=== PATIENT | female | born 1965 | race Caucasian/White ===

== ENCOUNTER → 2017-03-24 | Outpatient (CLI) | payer OTHER ==
[~2017-03-24] MED LIST: GADOBUTROL 10 ML VIAL IVP ONE
== END ==
LOC: FIMAGING 15:51
PROVIDERS: ATTEND Obstetrics & Gynecology Gynecology
DX: R10.2 Pelvic and perineal pain (principal); R50.9 Fever, unspecified; D25.9 Leiomyoma of uterus, unspecified; N85.9 Noninflammatory disorder of uterus, unspecified
CPT/HCPCS: A9585

== ENCOUNTER 2017-05-27 07:15 | Observation (INO) | payer OTHER ==
--- NOTE | 2017-11-17 14:34 | PDHPUP ---
History & Physical Update H&P update statement: This history and physical update is based on an assessment of the patient which was completed after admission or registration (within 24 hours), but prior to the surgery/procedure. H&P update: H&P reviewed & patient examined, no change in patient's condition since H&P completed
[2017-11-18] MEDS ORDERED: ceFAZolin 2 GM/DEXTROSE 100 ML IV ONE (06:13)
[2017-11-18] MEDS ORDERED: LIDOCAINE 1% 2 ML INJ ID PRN (06:16)
[2017-11-18] MEDS ORDERED: LR 1,000 ML IV ONE (06:16)
[2017-11-18] MEDS ORDERED: VASOPRESSIN 20 UNIT/ML VIAL ONE (06:44)
[2017-11-18] MEDS ORDERED: MIDAZOLAM 2 MG/2 ML VIAL ONE (07:14)
[2017-11-18] MEDS ORDERED: MIDAZOLAM 2 MG/2 ML VIAL IVP ONE (07:15)
[2017-11-18] MEDS ORDERED: fentaNYL 100 MCG/2 ML INJ ONE ×2 (07:19→10:35)
[2017-11-18] MEDS ORDERED: LIDOCAINE 2% 100 MG/5 ML SYR ONE (07:19)
[2017-11-18] MEDS ORDERED: ONDANSETRON 4 MG/2 ML VIAL ONE (07:19)
[2017-11-18] MEDS ORDERED: BUPIVACAINE/DEXTROSE 7.5MG/ML 2 ML SPINAL AMP SP ONE (07:19)
[2017-11-18] MEDS ORDERED: morphINE PF 5 MG/10 ML INJ ONE (07:19)
[2017-11-18] MEDS ORDERED: PROPOFOL 200 MG/20 ML VIAL ONE (07:19)
[2017-11-18] MEDS ORDERED: DEXAMETHASONE 4 MG/ML VIAL ONE (07:19)
[2017-11-18] MEDS ORDERED: GLYCOPYRROLATE 0.2 MG/1 ML VIAL ONE (08:32)
[2017-11-18] MEDS ORDERED: PHENYLEPHRINE HCL 100 MCG/ML SYR ONE (08:32)
[2017-11-18] MEDS ORDERED: DIAZEPAM 5 MG/ML 1 ML SYR IVP PRN (09:07)
[2017-11-18] MEDS ORDERED: NALOXONE HCL 0.4 MG/ML INJ IVP PRN (09:07)
[2017-11-18] MEDS ORDERED: LR 500 ML IV PRN (09:07)
[2017-11-18] MEDS ORDERED: oxyCODONE IR 5 MG TAB PO PRN (09:07)
[2017-11-18] MEDS ORDERED: MEPERIDINE 25 MG/0.5 ML AMP IVP PRN (09:07)
[2017-11-18] MEDS ORDERED: HYDROmorphONE/DILAUDID 2 MG/ML INJ IVP PRN (09:07)
[2017-11-18] MEDS ORDERED: ALBUTEROL 3 ML DEYVIAL IH PRN (09:07)
[2017-11-18] MEDS ORDERED: PROMETHAZINE HCL 25 MG/ML INJ IVP PRN (09:07)
--- NOTE | 2017-11-18 09:07 | PDANEPAE ---
ANE History of Present Illness fibroids, dysmenorrhea, here for vaginal hysterectomy and salpingectomy ANE Past Medical History - Cardiovascular History Hx Hypertension: No Hx Arrhythmias: No Hx Chest Pain: No Hx Coronary Artery / Peripheral Vascular Disease: No Hx CHF / Valvular Disease: No Hx Palpitations: No - Pulmonary History Hx COPD: No Hx Asthma/Reactive Airway Disease: Yes Hx Recent Upper Respiratory Infection: No Hx Oxygen in Use at Home: No Hx Sleep Apnea: No Sleep Apnea Screening Result - Last Documented: Negative Pulmonary History Comment: EXERCISE INDUCED ASTHMA - Neurologic History Hx Cerebrovascular Accident: No Hx Seizures: No Hx Dementia: No - Endocrine History Hx Diabetes: No Endocrine History Comment: HYPOTHROID. PT DOES NOT HAVE DIABETIES-SHE IS ON METFORMIN FOR PCOS - Renal History Hx Renal Disorders: No - Liver History Hx Hepatic Disorders: No - Neurological & Psychiatric Hx Hx Neurological and Psychiatric Disorders: No - Cancer History Hx Cancer: No - Congenital Disorder History Hx Congenital Disorders: No - GI History Hx Gastrointestinal Disorders: No - Other Health History Other Health History: ON METFORMIN FOR PCOS - Chronic Pain History Chronic Pain: Yes - Surgical History Prior Surgeries: FOOT SURG. TUBAL LIGATION. BREAST BX. COLONOSCOPY ANE Review of Systems Review of Systems: - Exercise capacity METS (RN): 5 METS ANE Patient History - Allergies Allergies/Adverse Reactions: No Known Allergies Allergy (Unverified 06/18/17 11:19) - Home Medications Home Medications: Albuterol [Proventil Inhaler HFA (*)] 1 - 2 puffs IH DAILY PRN 06/18/17 [Last Taken 11/17/17] Herbals/Supplements -Info Only 1 ea PO DAILY 06/18/17 [Last Taken 11/09/17] Ibuprofen [Motrin (*)] 200 mg PO DAILY PRN 06/18/17 [Last Taken 11/09/17] Levothyroxine [Synthroid 100 mcg (*)] 100 mcg PO DAILY06 06/18/17 [Last Taken ] metFORMIN SR [Glucophage XR 500 mg (*)] 500 mg PO DAILY 06/18/17 [Last Taken 2 Days Ago ~11/16/17] - NPO status NPO Since - Liquids (Date): 11/17/17 NPO Since - Liquids (Time): 20:00 NPO Since - Solids (Date): 11/17/17 NPO Since - Solids (Time): 20:00 - Smoking Hx Smoking Status: Never smoked - Family Anes Hx Family Hx Anesthesia Complications: NEG ANE Labs/Vital Signs - Vital Signs Blood Pressure: 135/79 Heart Rate: 74 Respiratory Rate: 16 O2 Sat (%): 95 Height: 154.94 cm Weight: 65.771 kg ANE Physical Exam - Airway Neck exam: FROM Mallampati Score: Class 1 Mouth exam: normal dental/mouth exam - Pulmonary Pulmonary: no respiratory distress - Cardiovascular Cardiovascular: regular rate and rhythym - ASA Status ASA Status: II ANE Anesthesia Plan Anesthesia Plan: general endotracheal anesthesia, spinal
[2017-11-18] MEDS ORDERED: KETOROLAC 30 MG/1 ML SDV ONE (09:24)
[2017-11-18] MEDS ORDERED: HYDROCODONE/APAP 5/325 TAB PO PRN (09:52)
[2017-11-18] MEDS ORDERED: ONDANSETRON 4 MG/2 ML VIAL IVP PRN ×2 (09:52→11:55)
--- NOTE | 2017-11-18 09:52 | POSTOPPROG ---
Post Op Note Date of Operation: 11/18/17 Surgeon: Nanette Spaulding Architectural Technologist: Mariposa OTTO Anesthesiologist: Magali Aguiar Anesthesia: LMA, Spinal Pre-op Diagnosis: uterine fibroids, symptomatic Post-op Diagnosis: same Indication: same Procedure: TVH/BS, morcellation of fibroid Findings: 14 week fibroid Inf/Abcess present in the surg proc area at time of surgery?: No EBL: 50-100 Complications: none
[2017-11-18] MEDS ORDERED: LR 1,000 ML IV SCH (10:00)
[2017-11-18] MEDS ORDERED: DIAZEPAM 5 MG/ML 1 ML SYR ONE (10:04)
[2017-11-18] MEDS: fentaNYL 100 MCG/2 ML INJ IVP PRN ×2 (10:42→11:36)
--- NOTE | 2017-11-18 11:22 | GOP ---
DATE OF OPERATION: 11/18/2017 SURGEON: Nanette Spaulding MD STRIPE MATCHER: FAM Gonzalez. ANESTHESIA: Spinal, morphine for postop pain control and general with LMA. ANESTHESIOLOGIST: Rita Aguiar PREOPERATIVE DIAGNOSIS: Symptomatic uterine fibroids, measuring about 14 weeks. POSTOPERATIVE DIAGNOSIS: Symptomatic uterine fibroids, measuring about 14 weeks. PROCEDURE PERFORMED: Total vaginal hysterectomy with bilateral salpingectomy and vaginal morcellatio n of uterine fibroids. FINDINGS: A very large uterus and very anteverted, about 14-16 weeks in size. Normal tubes and ovar ies. ESTIMATED BLOOD LOSS: About 50-100 cc. INDICATIONS: Patient is a 52-year-old, G2, P2, who was noted in February 2017, to have an enlarged ut erus on exam and also was stating that she was having significant bladder pressure and urinary urgenc y and frequency. Ultrasound done and she was noted to have an 8 cm uterine fibroid, very anteverted and compressing the bladder. We discussed the treatment options including hysterectomy, uterine dalton ry embolization. She then proceeded to have an endometritis and was treated with antibiotics, and at that has decided to undergo definitive treatment and that is with vaginal hysterectomy. DESCRIPTION OF PROCEDURE: With informed consent signed, patient taken to the operating room, placed under spinal then general anesthesia, placed in the high dorsal lithotomy position, prepped and drape d in the usual sterile fashion. Castillo catheter placed. The cervix was grasped with 2 tenaculums and a posterior colpotomy performed, entering the posterior cul-de-sac and this was done with the [place] s cissors and then the vaginal mucosa was sewn into the underlying peritoneum for hemostasis reasons. Next, the left uterosacral ligaments were clamped, cut, and suture ligated. Same was done on the rig ht. The cardinal ligaments were clamped, cut, and suture ligated. Because the uterus was so large, several extra bites in this area to assure hemostasis and then the uterine vessels on each side were identified, clamped, cut, and suture ligated. The anterior peritoneum was opened sharply and this ag ain also after several bites from the broad ligament, was released. Again, several other uterine ves sels were identified, clamped, cut, and suture ligated. The uterus was then inverted and the fundus was delivered posteriorly and this was then injected with about 18 cc of Pitressin and then morcellat ion using the scalpel of the posterior wall of the uterus up into the fundus done. This took quite a while to remove large sections of the uterus, probably about 20 minutes to morcellate. Then the cor nua on each side of the uterus were identified and these were clamped, cut, and suture ligated. The uterosacral ligaments were clamped, cut, suture ligated. Then successive bites down the broad ligame nt while the uterus was inverted to release the uterus and this was handed off for specimen. Then th e left fallopian tube was identified, clamped away from the ovary, cut and suture ligated and the raquel e was done on the right. Hemostasis was noted at each utero-ovarian pedicle and then the vagina was closed first with a Flynn culdoplasty, placing a suture at 6 o'clock of the vaginal cuff, grasping t he left uterosacral ligament and then several bites of the peritoneum and then grasping the right [place] rosacral ligament and then out at the 6 o'clock position. This was tied down obliterating the cul-de -sac. The vagina was closed with [id number] sutures. Hemostasis was noted. Patient was awaken ed in the operating room, taken to recovery room in stable condition. Tolerated procedure well. Ins trument count was correct x2. SURGEON: Nanette Spaulding MD. COMPLICATIONS: None. /[id number]/MODL
[2017-11-18] MEDS ORDERED: NALOXONE HCL 2 MG in D5W 500 ML IV SCH ×2 (13:30→14:00)
[2017-11-18] MEDS ORDERED: IBUPROFEN 600 MG TAB PO SCH (14:00)
[2017-11-18] MEDS ORDERED: hydrOXYzine HCL 25 MG TAB PO PRN (14:47)
[2017-11-18] MEDS ORDERED: KETOROLAC 30 MG/1 ML SDV IVP PRN (14:48)
[2017-11-18] MEDS ORDERED: ALBUTEROL 60 PUFFS/8 GM MDI IH PRN (14:55)
--- NOTE | 2017-11-18 15:18 | GCON ---
DATE OF CONSULTATION: 11/18/2017 REFERRING PHYSICIAN: Nanette Spaulding MD REASON FOR CONSULTATION: Allergic reaction to Duramorph, pruritis. HISTORY OF PRESENT ILLNESS: A 52-year-old female who underwent elective total vaginal hysterectomy with bilateral salpingectomy and morcellation of uterine fibroids by Dr. Spaulding today. She received Duramorph epidural with a total of 0.3 mg morphine. After procedure, she developed significant itching all over her body. Denies shortness of breath. No throat closing. No nausea, vomiting , or difficulty breathing. No chest pain. She has taken Percocet in the past without any reaction. In the PACU, she was started on Narcan drip and received Solu-Medrol, Benadryl, and ranitidine. Upon my review, patient states the itching has improved. REVIEW OF SYSTEMS: I completed a 10-point review of systems, negative, except as noted in HPI. PAST MEDICAL HISTORY: Exercise-induced asthma, hypothyroidism, PCOS. PAST SURGICAL HISTORY: Foot surgery, tubal ligation, breast biopsy, colonoscopy , 2 D and C's. SOCIAL HISTORY: Lives in [place] with her and 2 children. FAMILY HISTORY: Maternal grandmother with breast and lung cancer. ALLERGIES: None. PHYSICAL EXAMINATION: VITAL SIGNS: Temperature is 37.4, blood pressure 157/71 , heart rate in 70s, respirations 16, 99% on room air. GENERAL: She is tired appearing, but in no acute distress. HEART: PERRLA. Moist mucous membranes. Oropharynx is clear. No evidence of obstruction. CV: Regular rate and rhythm. LUNGS: Clear. No stridor. ABDOMEN: Soft, nontender, nondistended with positive bowel sounds. : No Castillo. MUSCULOSKELETAL: 5/5 upper lower extremity strength. SKIN: Warm, dry. No rash. NEURO: 2 through 12 intact. PSYCH: Alert and oriented x3. LABORATORY DATA: From 11/13/2017: Sodium 137, potassium 4.7, chloride 105, BUN 9, creatinine 0.7, glucose 82. TSH 1.5. ASSESSMENT AND PLAN: 1. Allergic reaction to Duramorph: No evidence of anaphylaxis without stridor , shortness of breath. Discussed case with Dr. Aguiar with Anesthesiology. She initiated Narcan drip, which has been beneficial in the pediatric population. She was started on protocol dose 0.2 mcg an hour. I will hold this for now and see how patient does. Provide famotidine, Benadryl, Atarax. She will be monitored in step-down unit to ensure no progression of reaction. 2. Postoperative pain: Per Anesthesiology, she should be able to tolerate orals given the reaction was due to the intrathecal administration of morphine. Toradol p.r.n. 3. Asthma. No evidence of exacerbation. 4. Hypothyroidism. Resume Synthroid. 5. Fibroids, status post vaginal hysterectomy and salpingectomy. Management per Dr. Spaulding's team. DISPOSITION: Thank you for this consultation. We will follow along. Please call if any questions. /[id number]/MODL MTDD
[2017-11-18] MEDS ORDERED: methylPREDNISolone SOD SUCC 125 MG/2 ML VIAL ONE (15:53)
[2017-11-18] MEDS ORDERED: RANITIDINE 50 MG/2 ML VIAL ONE (15:53)
--- NOTE | 2017-11-18 15:56 | PDPAINCON ---
Pain Management Consultation Patient referred by : Jasson - Subjective Pain is: no pain at all Side effects include: itchiness, No drowsy, No nausea, No nausea/vomiting Activity: unable to ambulate - Objective Technique: spinal opioid Site: lumbar Continuous infusion: morphine Sensory and motor exam: other (describes "pins and needles" feeling in BLE from just above knee to mid-peck, in distribution of L3/L4 nerve roots. She describes some weakness in both legs as well. Both of these symptoms are improving at this point. On exam, sensation and motor strength are 3+/5 bilaterally in L3 and L4 nerve distributions.) Vital signs: stable - Assessment/Plan Assessment/Plan: pain well-controlled, continue current mgmt (S/p single shot spinal duramorph at 0730, anesthesiology consulted at 1530 due to persistent inability of patient to feel legs. At bedside, patient and RN report her symptoms are improving. Sensorimotor exam bilaterally 3+/5 at L3 and L4 distribution, 4/5 L5 and S1. She describes a "pins and needles" feeling that is gradually dissipating. Denies LAI, N/V, shortness of breath, bowel/bladder incontinence. Patient also reports severe pruritus earlier in the day, which has improved markedly over the past few hours s/p narcan gtt, benadryl, steroid , and H2 antagonist. Concern for spinal cord injury is very low given her improving condition. At this time would not intervene and allow the block to continue to wear off over time. Prolonged block may due to relatively high dose of local/narcotic in a relatively short-statured individual, in conjunction with high sensitivity to medications. )
[2017-11-18] MEDS: FAMOTIDINE 20 MG/NACL 50 ML IV SCH (21:51)
[2017-11-19] MEDS ORDERED: LEVOTHYROXINE 100 MCG TAB PO SCH (06:00)
[2017-11-19 08:10] VITALS: BP 92/52
[2017-11-19] MEDS ORDERED: Herbals/Supplements -Info Only PO SCH (09:00)
--- NOTE | 2017-11-19 09:42 | ASMTCMCOM ---
CM Note CM Note Notes: 52yr old female admitted for Uterine fibroids. She has elected to have a vaginal hysterectomy. She has a Hx of Hypothyroid and PCOS. Patient lives with her and 2 children. CM not anticipating that patient will have discharge needs. Date Signed: 11/19/2017 09:41 AM Electronically Signed By:Minerva Diaz LCSW
[2017-11-19] MEDS: FAMOTIDINE 20 MG/NACL 50 ML IV SCH (09:43)
--- NOTE | 2017-11-19 11:14 | HOSPPROG ---
Hospitalist Progress Note Assessment/Plan: 45yo F with uterine fibroids s/p vaginal hysterectomy and salpingectomy. Medicine consulted for allergic reaction to Duramorph. #Allergic reaction: No anaphylaxis. Only dermatologic manifestation which has essentially resolved. Recommend PRN benadryl for itching. #Post-operative pain: Controlled. #Asthma: No wheezing. #Hypothyroidism: Continue synthroid. #Uterine fibroids: s/p hysterectomy Ok to discharge today from internal medicine stand point. Subjective: Doing well this AM. Very mild itching but much improved. Rash has resolved. No n/v, eating well. No breathing issues. She is being discharged. Objective: Vital Signs Temp Pulse Resp BP Pulse Ox 36.8 C 53 L 17 92/52 L 98 11/19/17 08:09 11/19/17 08:09 11/19/17 08:09 11/19/17 08:09 11/19/17 08:09 Laboratory Results 11/19/17 05:15 11/18/17 11/19/17 11/20/17 05:59 05:59 05:59 Intake Total 2100 400 Output Total 950 1150 Balance 1150 -750 - Physical Exam Constitutional: no apparent distress, appears nourished, not in pain Eyes: PERRL, anicteric sclera, EOMI Ears, Nose, Mouth, Throat: moist mucous membranes, hearing normal, ears appear normal, no oral mucosal ulcers Cardiovascular: regular rate and rhythym, no murmur, rub, or gallop Respiratory: no respiratory distress, no rales or rhonchi, clear to auscultation Gastrointestinal: normoactive bowel sounds, soft, non-tender abdomen, no palpable masses Genitourinary: no bladder fullness, no bladder tenderness, no renal bruits Skin: no rashes or abrasions, no fluctuance, no induration Musculoskeletal: full muscle strength, no muscle tenderness, normal joint ROM Neurologic: AAOx3, sensation intact bilaterally Psychiatric: interacting appropriately, not anxious, not encephalopathic, thought process linear ICD10 Worksheet Patient Problems: Problems Problem Status Onset Allergic reaction caused by a drug Acute - ICD10 Problem Qualifiers (1) Allergic reaction caused by a drug
--- NOTE | 2017-11-19 12:00 | ASDISCHSUM ---
Discharge Information Plan Status:Home with No Needs Medically Cleared to Leave:11/19/2017 Discharge Date:11/19/2017 CM D/C Disposition:Home, Routine, Self-Care ADT D/C Disposition: Projected Discharge Date:11/19/2017 12:00 PM Transportation at D/C:Family Discharge Delay Reason: Follow-Up Date:11/19/2017 12:00 PM Discharge Slot:1 - 8:01 am - 12:00 noon Final Diagnosis:Uterine fibroids Placement Information Patient Contact Information Contact Name:LATRELL Relationship: Address:[address] City:[facility] Phone: [facility]/Zip Code:[place] [address] Email: Financial Information Financial Class:BC Primary Plan Desc:SHARON ADAN SERGIOO Primary Plan Number:[id number] Secondary Plan Desc: Secondary Plan Number: Assessment Information LACE LACE Length of stay for Answers: Less than 1 day current admission Comorbidities - select Answers: Opioid dependence all that apply / Chronic pain Other Notes: Hypothyroid # of Emergency department Answers: 0 visits in the last 6 months Score: 5 Date Signed: 11/19/2017 11:59 AM Electronically Signed By:Minerva Diaz LCSW [facility] Progress Note CM Note CM Note Notes: 52yr old female admitted for Uterine fibroids. She has elected to have a vaginal hysterectomy. She has a Hx of Hypothyroid and PCOS. Patient lives with her and 2 children. CM not anticipating that patient will have discharge needs. Date Signed: 11/19/2017 09:41 AM Electronically Signed By:Minerva Diaz LCSW Case Management Discharge Plan Note Case Management Discharge Discharge Order Complete? Answers: Yes Patient to Obtain Answers: via Family Medications Transportation Arranged Answers: Family/Friends Transport will Pick (Date 11/19/2017 12:00 PM & Time) Family Notified Answers: Yes Notes: Family to transport Discharge Comments Notes: Patient has been discharged home with . No discharge needs. Date Signed: 11/19/2017 11:58 AM Electronically Signed By:Minerva Diaz LCSW Intervention Information
--- NOTE | 2017-11-19 12:55 | SOAPPROG ---
SOAP Progress Note Assessment/Plan: Assessment: doing much better this morning and wants to go home , voiding well and tolerating a regular diet, some flatus, ambulating Plan: 11/19/17 12:52 d/c HOME, F/U in 1-2 weeks, d/c med tramadol #10 , precautions given Subjective: had some pain last night ans also some sweating , better now , has eaten a regular breakfast, able to walk to the bathroom without problems Objective: lungs CTA, abd soft , good BS, perineum , min blood Vital Signs Temp Pulse Resp BP Pulse Ox 36.8 C 53 L 17 92/52 L 98 11/19/17 08:09 11/19/17 08:09 11/19/17 08:09 11/19/17 08:09 11/19/17 08:09 Laboratory Results 11/19/17 05:15 11/18/17 11/19/17 11/20/17 05:59 05:59 05:59 Intake Total 2100 400 Output Total 950 1150 Balance 1150 -750 ICD10 Worksheet Patient Problems: Problems Problem Status Onset Allergic reaction caused by a drug Acute
== END 2017-11-19 11:50 | disposition home or self-care (01) ==
LOC: F3E 11-18 05:54 → F2N 11-18 14:40
PROVIDERS: ADMIT Obstetrics & Gynecology Gynecology; ATTEND Obstetrics & Gynecology Gynecology
PROC: 0UT97ZZ Resection of Uterus, Via Natural or Artificial Opening (ICD-10-PCS; principal; 2017-11-18 07:15)
PROC: 0UT77ZZ Resection of Bilateral Fallopian Tubes, Via Natural or Artificial Opening (ICD-10-PCS; principal; 2017-11-18 07:15)
DX: D25.9 Leiomyoma of uterus, unspecified (principal)
CPT/HCPCS: 58262; G0378; J0690; J1100; J1200; J1885; J2001; J2250; J2274; J2310; J2370; J2405; J2704; J2780; J2930; J3010; J3360

== ENCOUNTER → 2017-10-23 | Outpatient (CLI) | payer OTHER | LOC: FIMAGING 10:32 | PROVIDERS: ATTEND Physician Assistant | DX: Z12.31 Encounter for screening mammogram for malignant neoplasm of breast (principal); Z80.3 Family history of malignant neoplasm of breast ==